=== PATIENT | male | born 1945 | race Native Hawaiian/Other Pacific Islander ===

== ENCOUNTER 2019-05-01 19:57 | Outpatient (CLI) | payer OTHER ==
[2019-05-01] MEDS ORDERED: METF500T PO (20:40)
[2019-05-01] MEDS ORDERED: ASPIRIN 81 LOW81 MG PO (20:40)
[2019-05-01] MEDS ORDERED: COZAAR100 MG PO (20:41)
[2019-05-01] MEDS ORDERED: SIMV40TA57 (20:41)
[2019-05-01] MEDS ORDERED: SPIRONOLACT25 MG PO (20:42)
[2019-05-01] MEDS ORDERED: MONTELUKAST SOD10 MG PO (20:42)
[2019-05-01] MEDS ORDERED: CHLORTHALID25 MG PO (20:43)
[2019-05-01] MEDS ORDERED: BYSTOLIC5 MG PO (20:43)
[2019-05-01] MEDS ORDERED: MINOXIDIL2.5 MG PO (20:44)
== END 2019-05-01 20:01 | disposition short-term general hospital (02) ==
LOC: AMB 19:57
DX: R55 Syncope and collapse (principal)
CPT/HCPCS: A0425; A0427

== ENCOUNTER 2019-05-01 20:01 | Observation (INO) | payer OTHER ==
[~2019-05-01] VITALS: Ht 182.9 cm; Wt 97.2 kg
[2019-05-01 20:01] VITALS: BP 124/56; TEMP 97.6
[2019-05-01 20:30] VITALS: BP 131/65
[2019-05-01] MEDS ORDERED: METF500T PO (20:40)
[2019-05-01] MEDS ORDERED: ASPIRIN 81 LOW81 MG PO (20:40)
[2019-05-01] MEDS ORDERED: COZAAR100 MG PO (20:41)
[2019-05-01] MEDS ORDERED: SIMV40TA57 (20:41)
[2019-05-01 20:42] LABS: PLATELET COUNT 145 K/uL (142-355)
[2019-05-01] MEDS ORDERED: MONTELUKAST SOD10 MG PO (20:42)
[2019-05-01] MEDS ORDERED: SPIRONOLACT25 MG PO (20:42)
[2019-05-01] MEDS ORDERED: BYSTOLIC5 MG PO (20:43)
[2019-05-01] MEDS ORDERED: CHLORTHALID25 MG PO (20:43)
[2019-05-01] MEDS ORDERED: MINOXIDIL2.5 MG PO (20:44)
[2019-05-01 20:57] LABS: POTASSIUM 3.1 mmol/L (3.6-5.2); SODIUM 142 mmol/L (136-145)
[2019-05-01 21:00] VITALS: BP 141/67
[2019-05-01 21:03] LABS: PARTIAL THROMBOPLASTIN TIME 22.2 SECONDS (24.5-33.6)
[2019-05-01 22:25] VITALS: BP 148/67; TEMP 98.1
[2019-05-02 00:02] VITALS: BP 148/73; TEMP 98; Ht 182.9 cm; Wt 97.2 kg
[2019-05-02 04:00] VITALS: BP 124/59; TEMP 97.7
[2019-05-02 07:22] LABS: PLATELET COUNT 132 K/uL (142-355)
[2019-05-02 08:00] VITALS: BP 145/62; TEMP 97.8
[2019-05-02 12:00] VITALS: BP 138/64; TEMP 99.3
[2019-05-02 12:24] LABS: PARTIAL THROMBOPLASTIN TIME 27.6 SECONDS (24.5-33.6)
[2019-05-02 16:08] VITALS: BP 131/62; TEMP 98.9
[2019-05-02 19:43] VITALS: BP 134/61; TEMP 98.4
[2019-05-03] VITALS: BP 114/61; TEMP 97.5
[2019-05-03 04:00] VITALS: BP 139/63; TEMP 98.5
[2019-05-03 08:00] VITALS: BP 149/74; TEMP 98
== END 2019-05-03 09:30 | disposition short-term general hospital (02) ==
LOC: ED 20:01 → MED/SURG 21:30
PROVIDERS: Hospitalist; ADMIT Family Medicine
DX: R55 Syncope and collapse (principal); R11.0 Nausea; R94.39 Abnormal result of other cardiovascular function study; I25.10 Atherosclerotic heart disease of native coronary artery without angina pectoris; E11.9 Type 2 diabetes mellitus without complications; R94.31 Abnormal electrocardiogram [ECG] [EKG]; N28.9 Disorder of kidney and ureter, unspecified; E86.0 Dehydration; R06.09 Other forms of dyspnea; Z79.899 Other long term (current) drug therapy
CPT/HCPCS: 36415; 36591; 80053; 80307; 80320; 81000; 82550; 82948; 83880; 84484; 85027; 85379; 85610; 85730; 93005; 96360; 96365; 96366; 96367; 96372; 96375; 99220; 99284; G0378; J1644; J1650; J2405

== ENCOUNTER 2019-05-03 09:40 | Outpatient (CLI) | payer OTHER ==
[~2019-05-03 09:40] MED LIST: ASPIRIN 81 LOW81 MG PO; BYSTOLIC5 MG PO; CHLORTHALID25 MG PO; COZAAR100 MG PO; METF500T PO; MINOXIDIL2.5 MG PO; MONTELUKAST SOD10 MG PO; SIMV40TA57; SPIRONOLACT25 MG PO
== END 2019-05-03 10:45 | disposition short-term general hospital (02) ==
LOC: AMB 09:40
DX: R94.31 Abnormal electrocardiogram [ECG] [EKG] (principal); R06.2 Wheezing
CPT/HCPCS: A0425; A0427